=== PATIENT | male | born 1990 | race Caucasian/White ===

== ENCOUNTER 2016-07-15 11:30 | Emergency (ER) | payer SELFPAY ==
[~2016-07-15] VITALS: Wt 80.0 kg
[~2016-07-15 11:30] MED LIST: ADV10050 INH; ALBU8.5H5 IH
--- NOTE | 2016-07-15 12:23 | ERD ---
ER Documentation Chief Complaint Date/Time DATE: 07/15/16 TIME: 12:21 Chief Complaint cough and congestion for the past week. no distress HPI This 26-year-old male who presents to the emergency department today complaining of cough and congestion for the past week. Patient states he has a history of asthma. States he had fever 3 days ago. Denies any sore throat, runny nose, nausea vomiting or diarrhea. CT takes Advair and use an albuterol inhaler. States he has tried Robitussin with no improvement ROS All systems reviewed and are negative except as per history of present illness. Medications Home Meds Active Scripts Ibuprofen* (Motrin*) 800 Mg Tab, 800 MG PO Q6, #30 TAB Prov:SADA WHELAN PA-C 07/15/16 Albuterol Sulfate* (Proair HFA*) 8.5 Gm Hfa.aer.ad, 2 PUFF INH Q4, #1 INHALER Prov:SADA WHELAN PA-C 07/15/16 Azithromycin* (Zithromax*) 250 Mg Tablet, 250 MG PO .ZPACK DIRECTED, #6 TAB TAKE 500 MG (2 TABS) THE FIRST DAY THEN 250 MG (1 TAB) DAYS 2-5 Prov:SADA WHELAN PA-C 07/15/16 Dextromethorphan Hb-Promethazine Hcl (Promethazine DM Syrup) 473 Ml Syrup, 5 ML PO Q6H Y for COUGH, #4 OZ Prov:SADA WHELAN PA-C 07/15/16 Reported Medications Salmeterol Xinaf-Fluticasone* (Advair*) 100/50 Diskus Inhaler, 1 INH INH BID, INH 05/15/14 Albuterol Sulfate* (Albuterol Sulfate* HFA) 8.5 Gm Hfa.aer.ad, 2 PUFF IH DAILY Y for WHEEZING AND SOB, EA 05/15/14 Allergies Allergies: Coded Allergies: acetaminophen (Verified Allergy, Mild, 07/15/16) guaifenesin (Verified Allergy, Mild, 07/15/16) amoxicillin (Verified Adverse Reaction, Mild, DIARRHEA, 07/15/16) PMhx/Soc Medical and Surgical Hx: pt denies Surgical Hx History of Surgery: No Anesthesia Reaction: No Hx Neurological Disorder: No Hx Respiratory Disorders: Yes (Asthma, Bronchitis) Hx Cardiac Disorders: No Hx Psychiatric Problems: No Hx Miscellaneous Medical Probl: No Hx Alcohol Use: No Hx Substance Use: No Hx Tobacco Use: No Smoking Status: Never smoker Physical Exam Vitals Vital Signs Date Time Temp Pulse Resp B/P Pulse Ox O2 Delivery O2 Flow Rate FiO2 07/15/16 11:34 100.2 98 21 126/78 98 Physical Exam Const: No acute distress, sweating Head: Atraumatic Eyes: Normal Conjunctiva ENT: Ears TMs normal. Nose no drainage. Throat no erythema no exudate Neck: Full range of motion..~ No meningismus. Resp: Clear to auscultation bilaterally. No absent breath sounds. No wheezing. Cardio: Regular rate and rhythm, no murmurs Abd: Soft, non tender, non distended. Normal bowel sounds Skin: No petechiae or rashes Neur: Awake and alert Psych: Normal Mood and Affect Procedures/MDM This is a 26-year-old male who presents to emergency department today for congestion for the past week. Patient denied any other symptoms and a fever a few days ago. Patient has a mildly elevated temperature of 100.2 here in the emergency department. His oxygen saturation is 98%. He is not tachycardic. I do not feel the patient requires a chest x-ray or laboratory work at this time. Patient has been seen here multiple times in the past for upper respiratory infections however he has not been in here in this emergency room for almost a year. Patient does have a history of asthma and is requesting a refill on his albuterol. Patient has no wheezing on physical exam I do not feel he requires a breathing treatment at this time. Given the patient's length and duration of symptoms I will treat the patient with azithromycin for possible bronchitis that would also cover him for pneumonia. I have low suspicion for strep pharyngitis, peritonsillar abscess, retropharyngeal abscess, otitis media, PNA, sinusitis, abscess, meningitis, sepsis, or other acute infectious bacterial process. I'll also give the patient e patient prescription for Motrin and Phenergan DM. Patient was also given a work note At this time the patient is stable for discharge and outpatient management. They should follow up with their PCP in the next 1-2. They may return to the emergency department sooner if symptoms persist or worsen. Patient understood and agreed with the plan. Departure Diagnosis: Primary Impression: Cough Condition: Fair SADA WHELAN PA-C Jul 15, 2016 12:23
[2016-07-15] MEDS ORDERED: AZIT250T94 PO (12:25)
[2016-07-15] MEDS ORDERED: D-ME473S18 PO (12:25)
[2016-07-15] MEDS ORDERED: IBUP800T25 PO (12:25)
[2016-07-15] MEDS ORDERED: ALBU8.5H3 INH (12:25)
[2016-07-15 12:41] VITALS: BP 118/64; PULSE 98; RESP 22; TEMP 99.6
== END 2016-07-15 12:42 | disposition home or self-care (01) ==
LOC: FTE 11:30
DX: R05 Cough (principal); J45.909 Unspecified asthma, uncomplicated
CPT/HCPCS: 99284